=== PATIENT | male | born 1985 ===

== ENCOUNTER 2017-12-13 21:44 | Emergency (ER) | payer SELFPAY ==
[~2017-12-13] VITALS: Ht 185.4 cm; Wt 94.8 kg
[2017-12-13 21:59] VITALS: BP 149/106
[2017-12-14] MEDS ORDERED: AMOX500C2 PO (01:39)
[2017-12-14] MEDS ORDERED: IBUP-1984 PO (01:39)
[2017-12-14] MEDS ORDERED: HYDR-569 PO (01:39)
[2017-12-14] MEDS ORDERED: HYDROcodone/acetaminophen 10/325mg tab PO ONE (01:40)
[2017-12-14] MEDS ORDERED: amoxicillin 250mg capsule PO ONE (01:40)
== END 2017-12-14 02:10 | disposition home or self-care (01) ==
LOC: ER 21:45
DX: K08.89 Other specified disorders of teeth and supporting structures (principal); F17.200 Nicotine dependence, unspecified, uncomplicated; Z79.899 Other long term (current) drug therapy; Z59.0 Homelessness
CPT/HCPCS: 99283